=== PATIENT | female | born 1975 | race African-American/Black ===

== ENCOUNTER → 2018-07-11 08:02 | Outpatient (CLI) | payer MEDICAID, SELFPAY ==
--- NOTE | 2018-07-11 08:05 | MM_ITS ---
MM Dig screening mamm BI w/CAD ORDERING PHYSICIAN : Christine Burch APRN PATIENT AGE: 42 years GENDER: Female COMPARISON: Baseline screeningMammogram. INDICATION: Routine baseline screening. Mammogram No new complaints. Noncontributory family history TECHNIQUE: Standard CC and MLO images were obtained. R2 CAD reviewed. Additional cc view right breast included FINDINGS: Moderate breast density. Fibroglandular elements most evident central & towards upper-outer quadrant bilateral. No suspicious or dominant mass. Scattered minimal areas of mild asymmetry appear to be glandular elements and seem to dissipate one view to another. . Bilateral follow-up in one year be adequate bilaterally but should be encouraged, emphasized to better establish baseline RIGHT BREAST: No areas of significant concern. Dense area of calcifications upper-outer quadrant right breast appears benign and can be followed. LEFT BREAST:No suspicious areas. No focal areas of significant concern. A few Tiny area of benign-appearing calcifications deep left breast highlighted by CAD can be followed IMPRESSION: ......... No suspicious or dominant mass in either breast. Moderate breast density. Scant Benign calcifications bilateral. . Bilateral follow-up in one year recommended-. & Should be encouraged /emphasized to better confirm baseline. BI-RADS Category: 2 Benign Finding(s) RECOMMENDED FOLLOW-UP: 1YR 1 YEAR FOLLOW-UP (A letter has been sent to the patient regarding results of the study.)
== END ==
PROVIDERS: PCP Nurse Practitioner; Visit Provider Nurse Practitioner
DX: Z12.31 Encounter for screening mammogram for malignant neoplasm of breast (principal)
CPT/HCPCS: 77067

== ENCOUNTER → 2018-10-23 08:07 | Outpatient (CLI) | payer MEDICAID, SELFPAY ==
--- NOTE | 2018-10-23 08:13 | XR_ITS ---
PROCEDURE: XR LUMBAR SPINE MIN 4V Patient Age:43Y CLINICAL INDICATION: ACUTE LOW BACK PAIN WITHOUT SCIATICA Right side low back pain 2 months no injury COMPARISON: No exams were available for comparison FINDINGS: Lumbar vertebral bodies are intact. Disc spaces are fairly well maintained throughout the lumbar spine with only borderline narrowing at L5/S1, L4/5. Perhaps scant sclerotic, early degenerative changes suggested at the L5/S1 facets and to lesser degree right L4/5 facet at lower L-spine. Non-specific straightening of the lumbar lordosis most likely merely congenital feature rather than a reflection of spasm. No spondylolysis or listhesis. No fracture nor acute findings. Bilateral Essure filament leading towards right and left fallopian tube IMPRESSION: No acute findings. No prominent findings Suggestion scant early facet changes L5/S1 Only borderline disc space narrowing L5/S1-and L4/5 disc space Dictated by: Oj Oliveira MD 10/23/2018 08:58 Signed by: <Electronically signed by Oj Oliveira MD in [place]> 10/23/2018 08:58
--- NOTE | 2018-10-23 08:14 | XR_ITS ---
PROCEDURE: XR HIP RT 2-3V W/PELVIS Patient Age:43Y CLINICAL INDICATION: RIGHT HIP PAIN Right hip pain. No injury. No prior. COMPARISON: No previous studies for comparison FINDINGS: The right hip appears intact femoral head and neck normal density normal contour well maintained. Adequate acetabular cup. The hips appears symmetric on the AP view of the pelvis of with no significant asymmetry. The osseous pelvis is intact and unremarkable. SI joints patent. Sacrum, iliac bone, pubis intact. Bilateral Essure filaments appear to extend towards fallopian tubes bilaterally, incidentally noted but fracture or dislocation is evident. No significant degenerative change. No lytic or blastic change. Unremarkable soft tissues. IMPRESSION: No acute findings. Right hip is intact. No fracture no acute findings. Hip joint space is well maintained bilaterally. AP pelvis intact. Dictated by: Oj Oliveira MD 10/23/2018 08:46 Signed by: <Electronically signed by Oj Oliveira MD in [place]> 10/23/2018 08:46
== END ==
PROVIDERS: PCP Nurse Practitioner; Visit Provider Nurse Practitioner
DX: M54.5 Low back pain (principal); M25.551 Pain in right hip
CPT/HCPCS: 72110; 73502

== ENCOUNTER 2020-12-14 13:10 | Emergency (ER) | payer OTHER, SELFPAY ==
[2020-12-14 13:38] VITALS: BP 153/98; PULSE 86; RESP 20; TEMP 36.7; O2SAT 99; BMI 34.9
--- NOTE | 2020-12-14 14:22 | HMH.EDUTC ---
[facility] [place] Disposition Clinical Impression: Viral syndrome, Bronchitis Pharyngitis Qualifiers: Pharyngitis/tonsillitis etiology: unspecified etiology Qualified Code(s): J02.9 - Acute pharyngitis, unspecified Disposition: Home, Self-Care Condition on Discharge: Good Instructions: DI for Acute Bronchitis, DI for Viral Syndrome Additional Instructions: Drink plenty of fluids. Take tylenol or ibuprofen for pain or fever. Take the medications as directed. Follow up with your regular doctor. GO TO THE ER FOR ANY WORSENING SYMPTOMS Quarantine until you know the results of your covid-19 test. If it is positive, the health department should call you and give you further instructions about your length of Quarantine and other things. Notify your school or workplace of your results and follow their instructions regarding return to work/school. The cough medication (promethazine dm) will make you drowsy, so don't drive or operate heavy machinery after taking it. Prescriptions: Promethazine/Dextromethorphan [Promethazine-Dm Syrup] 5 ml PO Q6HP PRN #240 ml PRN Reason: Cough Transmission Status: Received by [facility] # Ondansetron [Zofran 4mg ODT] 4 mg PO Q8HP PRN #12 tab PRN Reason: Nausea Transmission Status: Received by [facility] # Amoxicillin/Potassium Clav [Augmentin 875-125 Tablet] 1 tab PO Q12H 10 Days #20 tab Transmission Status: Received by [facility] # methylPREDNISolone [Medrol] 4 mg PO DIRECTED 6 Days #21 packet Transmission Status: Received by [facility] # Referrals: Reinaldo Mojica MD [Primary Care Provider] - Medical Decision Making - Medical Records Medical records reviewed: No: I reviewed the patient's medical records. - Lenny Inquiry Pt receiving controlled substance: No Vital Signs: 12/14/20 13:38 12/14/20 14:51 Temperature 98.0 F 98.0 F Temperature Source Oral Pulse Rate 86 Pulse Rate [Right Brachial] 86 Respiratory Rate 20 16 Blood Pressure 153/98 H Blood Pressure [Right Arm] 153/98 H Blood Pressure Mean [Right Arm] 116 Blood Pressure Source [Right Arm] Automatic Cuff Blood Pressure Position Sitting Blood Pressure Position [Right Arm] Sitting 02 Sat by Pulse Oximetry 99 Oxygen Delivery Method Room Air Room Air - Lab Data Lab results reviewed: Yes: I reviewed the patient's lab results. Lab Results 12/14/20 14:23: Strep Scn Rapid Clinic Negative 12/14/20 14:25: Chlamy pneumoniae PCR Not detected, Adenovirus (PCR) Not detected, B. pertussis DNA (PCR) Not detected, Coronavirus OC43 (PCR) Not detected, Coronavirus HKU1 (PCR) Not detected, Coronavirus 229E (PCR) Not detected, SARS-CoV-2 (PCR) Not detected, Coronavirus NL63 (PCR) Not detected, Human Metapneumovir PCR Not detected, Influenza A (H1) PCR Not detected, Influ A (H1N1/09) PCR Not detected, Influenza A (H3) PCR Not detected, Influenza Type A (PCR) Not detected, Influenza Type B (PCR) Not detected, M. pneumoniae (PCR) Not detected, Parainfluenza 1 (PCR) Not detected, Parainfluenza 2 (PCR) Not detected, Parainfluenza 3 (PCR) Not detected, Parainfluenza 4 (PCR) Not detected, RSV (PCR) Not detected, Entero/Rhino (PCR) Detected A Orders (Tests/Meds): ORDERS Category Date Time Status Strep Screen Confirmation Stat Micro 12/14/20 14:23 Received [facility] [place] HPI - General Stated complaint: cough, congestion, runny nose Time Seen by Provider: 12/14/20 14:22 Mode of Arrival: Ambulatory Source of Information: Patient Limitations: No Limitations Description of Symptoms (Recalled from Triage Doc. by RN): runny nose. coughing. sob HEENT Symptoms (Recalled from RN notes): Yes Resp Symptoms (Recalled from RN notes): Yes Skin Symptoms (Recalled from RN notes): No MS Symptoms (Recalled from RN notes): No Functional Status (Recalled from RN notes): yes - History of Present Illness Provider Complaint: She states that she has been feeling bad for
[2020-12-14 14:39] LABS: UTC Strep Screen (Rapid) Negative (Negative)
[2020-12-14 14:51] VITALS: BP 153/98; PULSE 86; RESP 16; TEMP 36.7
[2020-12-14 14:52] LABS: Adenovirus,PCR Not Detected (NotDetected); Bordetella Pertussis Not Detected (NotDetected); Chlamydophila Pneumoniae, PCR Not Detected (NotDetected); Coronavirus 19, PCR Not Detected (NotDetected); Coronavirus 229E Not Detected (NotDetected); Coronavirus NL63 Not Detected (NotDetected); Coronavirus OC43 Not Detected (NotDetected); Coronovirus HKU1,PCR Not Detected (NotDetected); Human Metapneumovirus Not Detected (NotDetected); Influenza A, PCR Not Detected (NotDetected); Influenza AH1, 2009 Not Detected (NotDetected); Influenza AH1, PCR Not Detected (NotDetected); Influenza AH3,PCR Not Detected (NotDetected); Influenza B, PCR Not Detected (NotDetected); Mycoplasma Pneumoniae, PCR Not Detected (NotDetected); Parainfluenza 1, PCR Not Detected (NotDetected); Parainfluenza 2, PCR Not Detected (NotDetected); Parainfluenza 3, PCR Not Detected (NotDetected); Parainfluenza 4, PCR Not Detected (NotDetected); Respiratory Syncytial Virus Not Detected (NotDetected)
[2020-12-14 16:43] LABS: Rhinovirus/Enterovirus Detected (NotDetected)
== END 2020-12-14 14:51 | disposition home or self-care (01) ==
PROVIDERS: Emergency Provider Nurse Practitioner Family; PCP Family Medicine
DX: J20.9 Acute bronchitis, unspecified (principal); J02.9 Acute pharyngitis, unspecified; B34.9 Viral infection, unspecified
CPT/HCPCS: 87581; 87632; 87798; 87880; 99202; C9803; G0463; U0003; U0005

== ENCOUNTER → 2021-05-25 07:40 | Outpatient (CLI) | payer OTHER, SELFPAY ==
[2021-05-25 08:30] VITALS: PULSE 64; PULSE 67
== END ==
PROVIDERS: PCP Family Medicine; Visit Provider Nurse Practitioner Family
DX: R05.1 Acute cough (principal)
CPT/HCPCS: 94060; 94640

== ENCOUNTER → 2021-09-09 08:31 | Outpatient (CLI) | payer OTHER, SELFPAY ==
[2021-09-09 10:07] LABS: Free T4 (Free Thyroxine) 0.87 ng/dl (0.78-2.19)
[2021-09-09 10:21] LABS: Thyroid Stimulating Hormone 2.11 uIU/mL (0.465-4.68)
== END ==
PROVIDERS: PCP Family Medicine; Visit Provider Obstetrics & Gynecology
DX: N92.6 Irregular menstruation, unspecified (principal)
CPT/HCPCS: 36415; 84439; 84443

== ENCOUNTER → 2021-09-09 09:06 | Outpatient (CLI) | payer OTHER, SELFPAY ==
--- NOTE | 2021-09-09 09:06 | MM_ITS ---
PROCEDURE INFORMATION: Exam: MG Bilateral Screening 3D Mammography Exam date and time: 09/09/2021 9:25 AM Age: 45 years old Clinical indication: Screening examination; Additional info: Screening mammogram TECHNIQUE: Imaging protocol: Bilateral Screening tomosynthesis and 2D mammography including computer-aided detection (CAD) when performed. COMPARISON: DIG MAMM-SCREEN PILAR 07/11/2018 8:41 AM FINDINGS: MAMMOGRAPHY: Breast composition: There are scattered areas of fibroglandular density. Mass: No suspicious masses. Architectural distortion: No suspicious distortion. Calcifications: No suspicious calcifications. Asymmetric density: None. Skin thickening: None. Axillary adenopathy: None. IMPRESSION: No mammographic evidence of malignancy. Annual screening is recommended unless otherwise clinically indicated. ASSESSMENT: BI-RADS Category 1: Negative
== END ==
PROVIDERS: PCP Family Medicine; Visit Provider Obstetrics & Gynecology
DX: Z12.31 Encounter for screening mammogram for malignant neoplasm of breast (principal)
CPT/HCPCS: 77063; 77067

== ENCOUNTER 2022-03-19 08:45 | Emergency (ER) | payer OTHER, SELFPAY ==
[2022-03-19 08:55] VITALS: BP 160/84; PULSE 71; RESP 20; TEMP 36.6; O2SAT 99; BMI 34.3
--- NOTE | 2022-03-19 09:04 | EXP.UTC ---
Discharge Plan Disposition Patient Disposition: Home, Self-Care Condition: Good Prescriptions Prescriptions: New rxeudvjksxdgnlu-kpuxddiuw-AK [Bromfed DM] 2-30-10 mg/5 mL Syrup 5 ml PO Q4H PRN (Reason: Cough) Qty: 120 0RF prednisone [prednisone] 20 mg tablet 20 mg PO BID 5 Days Qty: 10 0RF doxycycline monohydrate 100 mg tablet 100 mg PO BID 10 Days Qty: 20 0RF No Action loratadine [Claritin] 10 mg tablet 10 mg PO DAILY losartan-hydrochlorothiazide 50-12.5 mg tablet 1 tab PO DAILY meloxicam 15 mg tablet 15 mg PO DAILY PRN (Reason: .) fluticasone propionate [Flovent HFA] 110 mcg/actuation HFA aerosol inhaler 2 puff IH BID cholecalciferol (vitamin D3) 125 mcg (5,000 unit) capsule 125 mcg PO DAILY propranolol 40 mg tablet 40 mg PO DAILY fluticasone propionate [Flovent HFA] 110 mcg/actuation HFA aerosol inhaler 1 inh INHALATION DAILY Referrals Follow up/Referrals: Reinaldo Mojica MD [Primary Care Provider] - See instructions Clinical Impressions Clinical Impression: Sinusitis, Bronchitis Instructions Patient Instructions: DI for Sinusitis Discharge ED Provider: Rin Campos [facility] General Stated complaint: Loss voice cough Time Seen by Provider: 03/19/22 09:07 History of Present Illness Provider Complaint: Bilateral ear pain, cough, congestion, runny nose, sore throat X 2 days. Worse at night. Causing difficulty sleeping. Gets bronchitis every year around this time. History of asthma. Onset (ago): day(s) (2) Location: chest Related Data Home Medications Medication Instructions Recorded Confirmed loratadine 10 mg tablet (Claritin) 10 mg PO DAILY . 05/01/17 03/19/22 cholecalciferol (vitamin D3) 125 125 mcg PO DAILY 09/04/21 09/04/21 mcg (5,000 unit) capsule fluticasone propionate 110 2 puff inhalation BID 09/04/21 09/04/21 mcg/actuation HFA aerosol inhaler (Flovent HFA) losartan 50 mg-hydrochlorothiazide 1 tab PO DAILY . 09/04/21 03/19/22 12.5 mg tablet meloxicam 15 mg tablet 15 mg PO DAILY PRN . 09/04/21 03/19/22 fluticasone propionate 110 1 inh inhalation DAILY . 03/19/22 03/19/22 mcg/actuation HFA aerosol inhaler (Flovent HFA) propranolol 40 mg tablet 40 mg PO DAILY . 03/19/22 03/19/22 Previous Rx's Medication Instructions Recorded gjhstvmgoakjjjl-oklpgyjnuyccesv-CM 5 ml PO Q4H PRN Cough #120 mL 03/19/22 2 mg-30 mg-10 mg/5 mL oral syrup (Bromfed DM) doxycycline monohydrate 100 mg 100 mg PO BID 10 days #20 tabs 03/19/22 tablet prednisone 20 mg tablet 20 mg PO BID 5 days #10 tabs 03/19/22 Allergies Allergy/AdvReac Type Severity Reaction Status Date / Time NO KNOWN ALLERGIES Allergy Mild Uncoded 03/19/22 09:06 [facility] Disclaimer: The information contained in this section may have been updated after the patient was seen, as this information can be updated by other users. Social History Smoking Status: Never smoker alcohol intake: never substance use type: denies use current occupational status: other Travel in the last 8 weeks: None household members: spouse housing: house ROS Obtained: Yes All systems reviewed & no additional complaints except as documented Constitutional Constitutional: Reports fatigue and Denies fever(s) ENT Ears, Nose, Mouth, and Throat: Reports otalgia, Reports nasal congestion, Reports nasal discharge, Reports sinus pain, Reports sinus pressure and Reports sore throat Respiratory Respiratory: Reports chest congestion, Reports cough and Reports wheezing Endocrine Endocrine: Reports fatigue Allergic/Immunologic Allergic/Immunologic: Reports wheezing Physical Exam General General appearance: alert and in no apparent distress Eye Eye exam: Present PERRL Expanded ENT Exam TM/Canal exam: Bilateral TM: effusion Nose exam: Present sinus tenderness Respiratory Respiratory exam: Present other (diminished lung sounds, faint wheezes bilaterally
[2022-03-19 09:15] VITALS: BP 160/84; PULSE 71; RESP 20; TEMP 36.6; O2SAT 99
== END 2022-03-19 09:15 | disposition home or self-care (01) ==
PROVIDERS: Emergency Provider Physician Assistant; PCP Family Medicine
DX: J32.9 Chronic sinusitis, unspecified (principal); J40 Bronchitis, not specified as acute or chronic
CPT/HCPCS: 99212; 99214; G0463

== ENCOUNTER → 2022-05-08 09:53 | Outpatient (CLI) | payer OTHER, SELFPAY ==
[2022-05-08 11:46] LABS: Chloride 105 mmol/L (98-107); Potassium 4.1 mmoL/L (3.5-5.1); Sodium 139 mmol/L (136-145)
[2022-05-08 11:49] LABS: Alanine Aminotransferase 9 U/L (12-78); Albumin Level 4.2 g/dl (3.5-5.0); Albumin/Globulin Ratio 1.6 (1.1-1.8); Alkaline Phosphatase 40 U/L (38-126); Anion Gap 10.1 mEq/L (5-15); Aspartate Amino Transferase 21 U/L (14-36); Bilirubin,Total 0.4 mg/dl (0.2-1.3); Blood Urea Nitrogen 13 mg/dl (7-17); Carbon Dioxide 28 mmol/L (22.0-30.0); Cholesterol 188 mg/dl (140-200); Estimated Glomerular Filt Rate 68 ml/min (>60); GFR (African American) 82 ML/MIN (>60); Globulin 2.6 g/dL (1.3-3.2); Total Protein,Serum 6.8 g/dl (6.3-8.2); Triglycerides 77 mg/dl (30-150); VLDL Cholesterol 15 mg/dL (0-40)
[2022-05-08 11:50] LABS: Calcium 9.2 mg/dl (8.4-10.2); Chol/HDL Ratio 3.1 (1-3.5); Glucose 94 mg/dl (74-100); HDL Cholesterol 60 mg/dl (40-60)
[2022-05-08 12:01] LABS: Direct LDL Cholesterol 109.72 mg/dL (100-129)
[2022-05-08 12:07] LABS: 25-OH Vitamin D, Total 78.2 ng/mL (30-100); Free T4 (Free Thyroxine) 0.98 ng/dl (0.78-2.19)
[2022-05-08 12:21] LABS: Thyroid Stimulating Hormone 2.27 uIU/mL (0.465-4.68)
== END ==
PROVIDERS: PCP Nurse Practitioner Family; Visit Provider Nurse Practitioner Family
DX: E03.9 Hypothyroidism, unspecified (principal); E55.9 Vitamin D deficiency, unspecified; E78.5 Hyperlipidemia, unspecified; I10 Essential (primary) hypertension
CPT/HCPCS: 36415; 80053; 80061; 82306; 84439; 84443

== ENCOUNTER → 2022-05-28 10:35 | Outpatient (CLI) | payer OTHER, SELFPAY ==
--- NOTE | 2022-05-28 10:35 | US_ITS ---
FINAL REPORT CLINICAL HISTORY: abnormal uterine bleeding-- did tabd also FINDINGS: Transvaginal and transabdominal sonographic images of the pelvis were obtained. The uterus measures 12.0 x 9.4 x 6.0 cm. The endometrium measures 10 mm. The myometrium is heterogeneous. There are large complex hypoechoic masses in the uterus measuring up to 8.8 cm consistent with large fibroids. The right ovary measures 5.6 cm in length and left ovary measures 3.7 cm in length. Normal blood flow seen to the ovaries. There is no evidence of free fluid. IMPRESSION: Large fibroid uterus. Gynecological evaluation recommended. Reviewed, Interpreted and Dictated by Adam Ch MD Transcribed by Ree Rodriguez Authenticated and . [facility]
== END ==
PROVIDERS: PCP Nurse Practitioner Family; Visit Provider Obstetrics & Gynecology
DX: N93.9 Abnormal uterine and vaginal bleeding, unspecified (principal)
CPT/HCPCS: 76830; 76856

== ENCOUNTER → 2022-10-04 16:41 | Outpatient (CLI) | payer OTHER, SELFPAY ==
--- NOTE | 2022-10-04 16:45 | MR_ITS ---
PROCEDURE INFORMATION: Exam: MR Right Lower Extremity Joint Without Contrast; Hip Exam date and time: 10/04/2022 4:50 PM Age: 47 years old Clinical indication: Pain; Hip; Right TECHNIQUE: Imaging protocol: Magnetic resonance imaging of the right lower extremity joint without contrast. Exam focused on the hip. Sequences: Coronal and axial large field of view sequences include the pelvis and both the left and right hips. Additional sequences are focused on the symptomatic hip. COMPARISON: 1. CR XR HIP RT 2-3V W/PELVIS 10/23/2018 8:15 AM 2. US TRANSVAGINAL 05/28/2022 11:14 AM 3. CR XR LUMBAR SPINE MIN 4V 10/23/2018 8:15 AM FINDINGS: Bones/joints: There is no acute fracture or dislocation. No aggressive bone lesions are present. Small subchondral cysts involving the posteroinferior right acetabulum suggest overlying cartilage damage and mild osteoarthritis that may be primary osteoarthritis or secondary to remote trauma. Mild primary osteoarthritis involves the partially imaged right sacroiliac joint. Labrum: No tear within the limits of a non-arthrographic study. Bursae: A trace amount of edema is present in each greater trochanteric bursa region, which can be asymptomatic. TENDONS: Tendons of iliopsoas group: Unremarkable. No evidence of tear. Tendons of medial compartment of thigh: Unremarkable. No evidence of tear. Tendons of lateral rotators of hip: Unremarkable. No evidence of tear. Tendons of gluteal group: Unremarkable. No evidence of tear. Soft tissues: An oval 1.8 cm benign-appearing focus of fat necrosis or the sequelae of a medication injection involves the subcutaneous fat of the contralateral left gluteal region. No suspicious mass. Intraperitoneal space: A physiologic amount of free fluid is present within the pelvis. Reproductive: The partially imaged uterus is markedly enlarged containing numerous large fibroids. The previously provided uterine measurements likely significantly underestimate the uterus with the visible inferior portion of the uterus on this exam measuring 18.5 x 7.9 x 8.2 cm. Benign-appearing cystic masses measuring 1.9 cm and 0.8 cm along the vaginal wall probably represent Feliciano duct cysts. IMPRESSION: 1. Incompletely imaged, markedly enlarged uterus with numerous large fibroids. Previously provided uterine measurements likely significantly underestimate the actual size of the uterus. 2. Probable cartilage damage involving the posterior inferior right acetabulum suggested by subchondral cystic change and consistent with mild primary or secondary osteoarthritis. 3. 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
== END ==
PROVIDERS: PCP Nurse Practitioner Family; Visit Provider Nurse Practitioner Family
DX: M25.551 Pain in right hip (principal)
CPT/HCPCS: 73721

== ENCOUNTER 2023-06-03 17:02 | Emergency (ER) | payer OTHER, SELFPAY ==
[2023-06-03 17:15] VITALS: BP 201/117; PULSE 79; RESP 17; TEMP 36.7; O2SAT 98; BMI 33.3
--- NOTE | 2023-06-03 17:36 | ED_ITS ---
Discharge Plan Disposition Patient Disposition: Home, Self-Care Condition: Good Prescriptions Prescriptions: No Action losartan-hydrochlorothiazide 50-12.5 mg tablet 1 tab PO DAILY meloxicam 15 mg tablet 15 mg PO DAILY PRN (Reason: .) cholecalciferol (vitamin D3) 125 mcg (5,000 unit) capsule 125 mcg PO DAILY Myfembree 40-1-0.5 mg tablet 1 tab PO DAILY Qty: 30 11RF propranolol 60 mg capsule,extended release 24 hr 60 mg PO DAILY 30 Days Qty: 30 5RF Referrals Follow up/Referrals: Reinaldo Mojica MD [Primary Care Provider] - See instructions Activity Restrictions/Add. Instructions Additional Instructions/Restrictions: *Monitor Temp, Over the counter Motrin or Tylenol as directed/as needed Tylenol every 4 hours and Motrin every 6 hours (as long as your family doctor has told you that you can take it) for fever or pain. and straight to ER if unable to lower temp less than 101.0 after medication given *Warm salt water gargles may help to soothe the throat *Throat Lozenges? *Warm fluids like tea with honey may help to soothe the throat? *Sleep elevated *Humidifier/Vaporizer Follow up IMMEDIATELY for new or worsening symptoms or no Noticeable improvement over the next 48-72 hours. 911 for difficulty breathing or swallowing Follow up with your Family Doctor for recheck of your blood pressure as discussed If you take some Over the counter cold medication make sure that is is ok to take by someone with high blood pressure You were tested for today for COVID19 your test result should be back in the next 24-48 hours, you may check your results on the [facility] Clinical Impressions Clinical Impression: Exposure to COVID-19 virus Instructions Patient Instructions: COVID-19 Viral Test, DI for COVID-19 (Suspected or Confirmed ), Cough Discharge ED Provider: Gris Mclean [facility] [place] HPI General Stated complaint: cough sore throat Mode of Arrival: Ambulatory Source of Information: Patient Limitations: No Limitations Time Seen by Provider: 06/03/23 17:36 Description of Symptoms (Recalled from Triage Doc. by RN): PATIENT C/O COUGH AND SORE THROAT FOR A FEW DAYS. RECENT EXPOSURE TO COVID HEENT Symptoms (Recalled from RN notes): Yes Resp Symptoms (Recalled from RN notes): Yes Skin Symptoms (Recalled from RN notes): No MS Symptoms (Recalled from RN notes): No Functional Status (Recalled from RN notes): WNL History of Present Illness Provider Complaint: Patient states that she has been having cough, nasal drainage and scratchy throat States that she was recently around someone that just tested positive for COVID and she wanted to get tested Related Data Home Medications Medication Instructions Recorded Confirmed cholecalciferol (vitamin D3) 125 125 mcg PO DAILY 09/04/21 06/03/23 mcg (5,000 unit) capsule losartan 50 mg-hydrochlorothiazide 1 tab PO DAILY 09/04/21 06/03/23 12.5 mg tablet meloxicam 15 mg tablet 15 mg PO DAILY PRN . 09/04/21 06/03/23 Previous Rx's Medication Instructions Recorded propranolol 60 mg capsule,24 60 mg PO DAILY 30 days #30 caps 12/01/22 hr,extended release relugolix 40 mg-estradiol 1 1 tab PO DAILY #30 tabs 01/24/23 mg-norethindrone acetate 0.5 mg tablet (Myfembree) Allergies Allergy/AdvReac Type Severity Reaction Status Date / Time No Known Allergies Allergy Verified 06/03/23 17:24 Worker's Comp Is this a Worker's Comp case?: No [facility] Disclaimer: The information contained in this section may have been updated after the patient was seen, as this information can be updated by other users. Medical History Abnormal uterine bleeding Fibroid uterus Menorrhagia Surgical History No significant past surgical history Family History Other Anemia Asthma Coronary artery disease Diabetes Hypertension Thyroid disorder Social History Smoking Status: Never smoker alcohol intake: never substance use type: denies use current occupational status: other Travel in the last 8 weeks: None household members: spouse housing: house ROS Obtained: Yes All systems reviewed & no additional complaints except as documented and Yes Systems reviewed as appropriate & no additional complaints except as documented Constitutional Constitutional: Reports system reviewed and no additional complaints, except as documented, Reports as per HPI, Denies body ache, Denies chills, Denies fever(s) and Denies headache(s) ENT Ears, Nose, Mouth, and Throat: Reports system reviewed and no additional complaints, except as documented, Reports as per HPI, Denies headache(s), Reports nasal congestion, Reports nasal discharge and Reports sore throat Cardiovascular Cardiovascular: Reports system reviewed and no additional complaints, except as documented and Reports as per HPI Respiratory Respiratory: Reports system reviewed and no additional complaints, except as documented, Reports as per HPI and Reports cough Gastrointestinal Gastrointestingal: Reports system reviewed and no additional complaints, except as documented and as per HPI Neurologic Neurologic: Denies headache(s) Physical Exam General General appearance: alert and in no apparent distress ENT ENT exam: Present mucous membranes moist Expanded ENT Exam Nose exam: Absent sinus tenderness Throat exam: Present normal inspection Respiratory Respiratory exam: Present normal lung sounds bilaterally; Absent respiratory distress or wheezes Cardiovascular Cardiovascular exam: Present regular rate, normal rhythm and normal heart sounds Neurological Exam Neurological exam: Present alert, oriented X3 and normal gait Medical Decision Making Lenny Inquiry Pt receiving controlled substance: No Lenny was queried for this patient: No Vital Signs: 06/03/23 17:15 Temperature 98.1 F Temperature Source Oral Pulse Rate [Left Brachial] 79 Respiratory Rate 17 Blood Pressure [Left Arm] 201/117 H Blood Pressure Mean [Left Arm] 145 Blood Pressure Source [Left Arm] Automatic Cuff Blood Pressure Position [Left Arm] Sitting 02 Sat by Pulse Oximetry 98 Oxygen Delivery Method Room Air Orders (Tests/Meds): ORDERS Category Date Time Status Covid-19 Nasal PCR ([facility]) Routine Lab 06/03/23 17:14 Received Medical Decision Narrative: Patient blood pressure elevated rechecked discussed with patient about transfer to the ED for further evaluation and treatment and she declined States that she has been stressed today with worrying about COVID exposure and aniversary of her family members that she would follow up with her PCP for recheck if needed Patient aware of risk and still declined transfer or treatment
[2023-06-03 17:43] VITALS: BP 198/96
[2023-06-03 17:50] VITALS: BP 198/96; PULSE 79; RESP 17; TEMP 36.7; O2SAT 98
== END 2023-06-03 17:52 | disposition home or self-care (01) ==
PROVIDERS: Emergency Provider Nurse Practitioner; PCP Family Medicine
DX: U07.1 COVID-19 (principal); R05.9 Cough, unspecified; R09.81 Nasal congestion; R07.0 Pain in throat
CPT/HCPCS: 87635; 99212; 99213; G0463

== ENCOUNTER 2023-07-02 13:55 | Emergency (ER) | payer OTHER, SELFPAY ==
[2023-07-02 13:57] VITALS: BP 200/117; PULSE 77; RESP 18; TEMP 36.8; O2SAT 100; BMI 32.5
[2023-07-02 14:14] VITALS: BP 188/109; O2SAT 99
--- NOTE | 2023-07-02 14:24 | HMH.EDGENADL ---
Discharge Plan Disposition Patient Disposition: Still a Patient Prescriptions Prescriptions: No Action losartan-hydrochlorothiazide 50-12.5 mg tablet 1 tab PO DAILY meloxicam 15 mg tablet 15 mg PO DAILY PRN (Reason: .) cholecalciferol (vitamin D3) 125 mcg (5,000 unit) capsule 125 mcg PO DAILY Myfembree 40-1-0.5 mg tablet 1 tab PO DAILY Qty: 30 11RF propranolol 60 mg capsule,extended release 24 hr 60 mg PO DAILY 30 Days Qty: 30 5RF Referrals Follow up/Referrals: Reinaldo Mojica MD [Primary Care Provider] - See instructions Sahil Bella MD [Staff Physician] - See instructions Activity Restrictions/Add. Instructions Additional Instructions/Restrictions: Keep a blood pressure log and follow-up with primary care doctor for escalation of the outpatient oral antihypertensive medications as discussed. There is no evidence of any emergent medical condition regarding your discomfort in your left lower extremity. Clinical Impressions Clinical Impression: Leg pain, left, Asymptomatic hypertension Discharge ED Provider: Mayuri Avendano General Adult HPI General Chief complaint: Recheck/Abnormal Lab/Rx Stated complaint: high bp left leg pain Time Seen by Provider: 07/02/23 14:15 Mode of Arrival: Ambulatory Source of Information: Patient Limitations: No Limitations Description of Symptoms (Recalled from ER Triage Doc. by RN): pt presents to ED with c/o high blood pressure and left leg doesnt feel right . pt reports she has noticed her blood pressure trending up over the past few days. History of Present Illness HPI narrative: Patient is a 47-year-old female presents today with multiple complaints. Primarily she is here because she has some left lower leg discomfort. She states it feels funny. When asked articulate this further she does not state that it is severely painful or that she has any specific sensory complaints. She also denies any changes in motor function. No significant leg swelling. No shortness of breath or chest pain. No decrease in urine output however several months ago was told that her renal function was abnormal. She is chronically followed for her hypertension states that she has a home blood pressure cuff and she has been running high over the last several days. Systolic blood pressures have been in the 160s. She is on losartan and propranolol has not missed any doses. Related Data Home Medications Medication Instructions Recorded Confirmed cholecalciferol (vitamin D3) 125 125 mcg PO DAILY 09/04/21 06/03/23 mcg (5,000 unit) capsule losartan 50 mg-hydrochlorothiazide 1 tab PO DAILY 09/04/21 06/03/23 12.5 mg tablet meloxicam 15 mg tablet 15 mg PO DAILY PRN . 09/04/21 06/03/23 Previous Rx's Medication Instructions Recorded propranolol 60 mg capsule,24 60 mg PO DAILY 30 days #30 caps 12/01/22 hr,extended release relugolix 40 mg-estradiol 1 1 tab PO DAILY #30 tabs 01/24/23 mg-norethindrone acetate 0.5 mg tablet (Myfembree) Allergies Allergy/AdvReac Type Severity Reaction Status Date / Time No Known Allergies Allergy Verified 06/03/23 17:24 [facility] Disclaimer: The information contained in this section may have been updated after the patient was seen, as this information can be updated by other users. Medical History Abnormal uterine bleeding Fibroid uterus Menorrhagia Surgical History No significant past surgical history Family History Other Anemia Asthma Coronary artery disease Diabetes Hypertension Thyroid disorder Social History Smoking Status: Never smoker alcohol intake: never substance use type: denies use current occupational status: other Travel in the last 8 weeks: None household members: spouse housing: house ROS Obtained: Yes All systems reviewed & no additional complaints except as documented Physical Exam General General appearance: alert and in no apparent distress Respiratory Respiratory exam: Present normal lung sounds bilaterally and respiratory distress Cardiovascular Cardiovascular exam: Present regular rate and normal rhythm Extremities Exam Extremities exam: Present other (Left lower extremity there is no evidence of soft tissue swelling she has normal motor and sensory function specifically with exertion sense temperature and pain also has normal DP and PT pulses) Neurological Exam Neurological exam: Present alert and oriented X3 Medical Decision Making Lenny Inquiry Pt receiving controlled substance: No Vital Signs: 07/02/23 13:57 07/02/23 14:14 07/02/23 14:14 Temperature 98.3 F Temperature Source Oral Pulse Rate Pulse Rate [Left Radial] 77 Respiratory Rate 18 Blood Pressure Blood Pressure [Right Arm] 200/117 H 188/109 H Blood Pressure Mean [Right Arm] 144 135 02 Sat by Pulse Oximetry 100 99 Oxygen Delivery Method Room Air 07/02/23 14:30 Temperature Temperature Source Pulse Rate 70 Pulse Rate [Left Radial] Respiratory Rate 15 Blood Pressure 174/106 H Blood Pressure [Right Arm] Blood Pressure Mean [Right Arm] 02 Sat by Pulse Oximetry 99 Oxygen Delivery Method Room Air Lab Data Lab results reviewed: Yes I reviewed the patient's lab results. Lab Results 07/02/23 14:10: WBC 7.8, RBC 4.65, Hgb 14.0, Hct 42.9, MCV 92.2, MCH 30.1, MCHC 32.7, RDW 14.1, Plt Count 330, MPV 8.3, Neut % (Auto) 60.3, Lymph % (Auto) 28.8, Douglas % (Auto) 6.1, Eos % (Auto) 3.3, Baso % (Auto) 1.5, Neut # (Auto) 4.7, Lymph # (Auto) 2.2, Douglas # (Auto) 0.5, Eos # (Auto) 0.3, Baso # (Auto) 0.1, Sodium 139, Potassium 3.2 L, Chloride 102, Carbon Dioxide 31 H, Anion Gap 9.2, BUN 10, Creatinine 1.00, Estimated Creat Clear 99, Estimated GFR 60, Est GFR ( Amer) 72, Glucose 138 H, Calcium 9.9, Total Creatine Kinase 162 H 07/02/23 14:28: D-Dimer 0.39 07/02/23 14:10 07/02/23 14:10 Orders (Tests/Meds): ORDERS Category Date Time Status POCUS Point of Care (ER Only) Stat Exams 07/02/23 14:25 Ordered BMP [Basic Metabolic Panel] Stat Lab 07/02/23 14:10 Completed CBC w/Auto Diff [Complete Blood Count Auto Diff] Stat Lab 07/02/23 14:10 Completed CK [Creatine Kinase] Stat Lab 07/02/23 14:10 Completed D-Dimer Stat Lab 07/02/23 14:28 Completed Medical Decision Narrative: 47-year-old with out any clinical evidence of endorgan damage from history of physical standpoint. She does have some left lower extremity discomfort with a normal exam. Will do a limited bedside ultrasound to rule out DVT in addition to a D-dimer in the setting of low pretest clinical probability. We do not have the ability to get a formal DVT ultrasound at the moment. Also will get basic blood work including chemistry test and CK. Right analysis is unlikely but possible. Also with her persistently elevated high blood pressure and recent renal insufficiency 1 to see what her renal function is at the moment. Reassessment 2:58 PM creatinine within normal limits. This was explained to the patient she is aware of this. D-dimer less than 0.5. DVT extremely unlikely no further workup is needed for this. She has been reassured. She has been advised to follow-up with primary care doctor with a blood pressure log for escalation of outpatient antihypertensive medications with a goal blood pressure of 140/90 based on most recent guidelines. Procedures Miscellaneous Procedure Procedure Performed: Structures identified Common femoral veins and popliteal veins left lower extremity Findings complete compression of bilateral common femoral veins and bilateral popliteal veins with normal augmentation left lower extremity Impression no evidence of left lower extremity DVT The study was performed by me and I personally interpreted all images and videos based on my clinical judgment these images were adequate and did not necessitate further imaging Critical Care Critical Care Time Critical Care Time: No
[2023-07-02 14:30] VITALS: BP 174/106; PULSE 70; RESP 15; O2SAT 99
[2023-07-02 14:31] LABS: Basophils # 0.1 K/mm3 (0-0.2); Basophils % 1.5 % (0.1-2.0); Eosinophils # 0.3 K/mm3 (0.0-0.4); Eosinophils % 3.3 % (0.1-12.0); Hematocrit 42.9 % (37.0-47.0); Lymphocytes # 2.2 K/mm3 (0.7-4.5); Lymphocytes % 28.8 % (10-50); Mean Corpuscular HGB Conc 32.7 g/dL (31.8-35.4); Mean Corpuscular Hemoglobin 30.1 pg (27.0-31.2); Mean Corpuscular Volume 92.2 fl (81-99); Mean Platelet Volume 8.3 fl (7.4-10.4); Monocytes # 0.5 K/mm3 (0.1-1.0); Monocytes % 6.1 % (1.7-9.3); Neutrophils # 4.7 K/mm3 (1.8-7.8); Neutrophils % 60.3 % (37.0-80.0); Platelet Count 330 K/mm3 (142-424); Red Blood Count 4.65 M/mm3 (4.20-5.40); Red Cell Distribution Width 14.1 % (11.5-17.5); White Blood Count 7.8 K/mm3 (4.8-10.8)
--- NOTE | 2023-07-02 14:31 | PC.NURSE ---
Dr. Avendano at bedside with u/s of BRAYAN
[2023-07-02 14:36] LABS: Chloride 102 mmol/L (98-107); Sodium 139 mmol/L (136-145)
[2023-07-02 14:37] LABS: Potassium 3.2 mmoL/L (3.5-5.1)
[2023-07-02 14:39] LABS: Blood Urea Nitrogen 10 mg/dl (7-17); Creatinine Clearance Estimated 99 mL/min (50-200); Estimated Glomerular Filt Rate 60 ml/min (>60); GFR (African American) 72 ML/MIN (>60)
[2023-07-02 14:40] LABS: Anion Gap 9.2 mEq/L (5-15); Calcium 9.9 mg/dl (8.4-10.2); Carbon Dioxide 31 mmol/L (22.0-30.0); Creatine Kinase 162 U/L (30-135); Glucose 138 mg/dl (74-100)
[2023-07-02 14:50] LABS: D-Dimer 0.39 ug/mL (0.0-0.5)
[2023-07-02 15:02] VITALS: BP 174/106; PULSE 68; RESP 19; TEMP 36.7; O2SAT 98
== END 2023-07-02 15:03 | disposition home or self-care (01) ==
PROVIDERS: Emergency Provider Student in an Organized Health Care Education/Training Program; PCP Family Medicine
DX: M79.605 Pain in left leg (principal); E87.6 Hypokalemia; I10 Essential (primary) hypertension
CPT/HCPCS: 80048; 82550; 85025; 85378; 99284

== ENCOUNTER 2023-08-26 08:10 | Outpatient (CLI) | payer OTHER, SELFPAY ==
--- NOTE | 2023-08-26 08:10 | MM_ITS ---
PROCEDURE INFORMATION: Exam: MG Bilateral Screening 3D Mammography Exam date and time: 08/26/2023 8:03 AM Age: 47 years old Clinical indication: Screening examination TECHNIQUE: Imaging protocol: Bilateral Screening tomosynthesis and 2D mammography including computer-aided detection (CAD) when performed. COMPARISON: 1. MG MM DIG SCREENING MAMM BI W/CAD 09/09/2021 9:25 AM 2. MG DIG MAMM-SCREEN PILAR 07/11/2018 8:41 AM FINDINGS: MAMMOGRAPHY: Breast composition: There are scattered areas of fibroglandular density. Mass: None. Architectural distortion: None. Calcifications: No suspicious calcifications. Asymmetric density: None. Skin thickening: None. Axillary adenopathy: None. IMPRESSION: No mammographic evidence of malignancy. Annual screening is recommended unless otherwise clinically indicated. ASSESSMENT: BI-RADS Category 1: Negative
== END 2023-08-26 23:59 | disposition home or self-care (01) ==
LOC: RAD 08:10
PROVIDERS: PCP Family Medicine; Visit Provider Obstetrics & Gynecology
DX: Z12.31 Encounter for screening mammogram for malignant neoplasm of breast (principal)
CPT/HCPCS: 77063; 77067

== ENCOUNTER 2024-09-07 07:42 | Outpatient (CLI) | payer OTHER, SELFPAY ==
--- OUTSIDE RECORDS SUMMARY | 2024-09-07 07:44 | XMS_ITS | Clinical Summary ---
Author Organization [facility] Address [address] [place] [address] Care Team Providers Care Hyster Machine Operator Name Role Phone Ez Mojica MD Primary Care Provider [phone] Allergies No known active allergies Medications ProAir HFA 108 (90 Base) MCG/ACT inhaler 04/30/2022 Act adam cyclobenzaprine (Flexeril) 10 MG tablet 05/11/2022 Active Flovent HFA 110 MCG/ACT inhaler 10/28/2022 Act adam loratadine (Claritin) 10 MG tablet 10/28/2022 Active meloxicam (Mobic) 15 MG tablet 08/31/2022 Active pantoprazole (Protonix) 40 MG EC tablet 06/03/2022 Active Myfembree 40-1-0.5 MG tablet 11/30/2022 Active losartan-hydroC HLOROthiazide (Hyzaar) 100-25 MG tablet Take 1 tablet by mouth daily. 06/27/2024 Active cholecalciferol (Vitamin D3) 125 MCG (5000 UT) capsule Take 1 capsule by mouth daily. Active Active Problems No known active problems Encounters Date Type Department Care Team Description 07/06/2024 1:45 PM EDT Office Visit [facility] [address] [place] [address] Elana Dotson MD Keratoconus of both eyes (Primary Dx); High degree of astigmatism in both eyes; High myopia, bilateral 07/06/2024 Travel 07/04/2024 Travel from Last 3 Months Family History Medical History Relation Name Comments No Known Problems Father Cataracts Mother Hypertension Mother Thyroid disease Mother Relation Name Status Comments Father Mother Social History Tobacco Use Types Packs/Day Years Used Date Smoking Tobacco: Never Passive Smoke Exposure: Never Smokeless Tobacco: Never Tobacco Cessation:Counseling Given: Not Answered Comments Unknown Sex and Gender Information Value Date Recorded Sex Assigned at Not on file Legal Sex Female 8:52 PM EDT Gender Identity Not on file Sexual Orientation Not on file Plan of Treatment Upcoming Encounters Date Type Department Care Team (Late st Contact Info) Description 07/19/2025 10:30 AM EDT Office Visit [facility] [address] [place] [address] Elana Dotson MD [address] [place] [phone] Health Maintenance Due Date Last Done Comments [facility]-Depression Screening 1976 [facility]-HIV Screening 1976 [facility]-Hepatitis C Screening 1976 [facility]-Infant/Child/Adol SDOH Screenings 1976 [facility]- SDOH Screenings 1994 [facility]-Adult SDOH Screenings 1994 [facility]-Hepatitis B Vaccines (1 of 3 - 19+ 3-dose series) 10/05/1995 [facility]-Pap Smear 1997 [facility]-DTaP,Tdap,and Td Vaccines (1 - Tdap) 04/04/2001 04/03/2001 [facility]-Cervical Cancer Screening 2006 [facility]-HPV/Cotest 2006 CT Colonography 2021 Colonoscopy 2021 FIT 2021 FOBT 2021 Sigmoidoscopy 2021 [id number] Vaccine ( season) 2023 12/22/2021, 01/02/2021, 04/11/2020, Additional history exists [facility]-Influenza Vaccine (#1) 10/22/202412/07, 12/13/2022, 11/27/2021 [facility]-Zoster Vaccines (1 of 2) 2026 FIT-DNA 03/25/2027 03/25/2024 [facility]-Colorectal Cancer Screening 03/25/2027 [facility]-Hepatitis A Vaccines Aged Out 08/15/2018 No longer eligible based on patient's age to complete this topic HPV Vaccines Aged Out No longer eligi ble based on patient's age to complete this topic [facility]-HIB Vaccines Aged Out No longer e ligible based on patient's age to complete this topic [facility]-IPV Vaccines Aged Out No longer e ligible based on patient's age to complete this topic [facility]-Pneumococcal Vaccine: Pediatrics (0 to 5 Years) and At-Risk Patients (6 to 49 Years) Aged Out No longer eligible based on patient's age to complete this topic [facility]-Rotavirus Vaccines Aged Out No lo nger eligible based on patient's age to complete this topic Procedures Procedure Name Priority Date/Time Associated Diagnosis Comments CORNEAL TOPOGRAPHY - OU - BOTH EYES Routine 07/06/2024 3:07 PM EDT High degree of astigmatism in both eyes from Last 3 Months Results * Corneal Topography - OU - Both Eyes (07/06/2024 3:07 PM EDT) Anatomical Region Laterality Modality Head Other Narrative 07/06/2024 3:07 PM EDT [facility] OU Elana Dotson MD OPHTH MAPPING Final Result from Last 3 Months Insurance [employer] [facility] MEDICAID Care Teams Hyster Machine Operator Relationship Specialty Start Date End Date Ez Mojica MD [address] [place] [address] #1 [address] [place] [id number] [facility] - General 12/06/22
--- NOTE | 2024-09-07 08:00 | MM_ITS ---
PROCEDURE INFORMATION: Exam: MG Bilateral Screening 3D Mammography Exam date and time: 09/07/2024 8:09 AM Age: 48 years old Clinical indication: Screening exam. TECHNIQUE: Imaging protocol: Bilateral Screening tomosynthesis and 2D mammography including computer-aided detection (CAD) when performed. COMPARISON: 1. MG MM DIG SCREENING MAMM BI W/CAD 08/26/2023 8:03 AM 2. MG MM DIG SCREENING MAMM BI W/CAD 09/09/2021 9:25 AM FINDINGS: MAMMOGRAPHY: Breast composition: There are scattered areas of fibroglandular density. Mass: No suspicious masses. Architectural distortion: None. Calcifications: No suspicious calcifications. Asymmetric density: None. Skin thickening: None. Axillary adenopathy: None. IMPRESSION: No mammographic evidence of malignancy. Annual screening is recommended unless otherwise clinically indicated. ASSESSMENT: BI-RADS Category 1: Negative.
== END 2024-09-07 23:59 | disposition home or self-care (01) ==
LOC: RAD 07:43
PROVIDERS: PCP Family Medicine; Visit Provider Obstetrics & Gynecology
DX: Z12.31 Encounter for screening mammogram for malignant neoplasm of breast (principal); R92.323 Mammographic fibroglandular density, bilateral breasts
CPT/HCPCS: 77063; 77067